=== PATIENT | female | born 1985 | race Caucasian/White ===

== ENCOUNTER 2021-10-02 16:49 | Emergency (ER) | payer MEDICAID, SELFPAY ==
[2021-10-02 16:50] VITALS: BP 129/88; PULSE 81; RESP 18; TEMP 36.1; O2SAT 99; BMI 40.2
--- NOTE | 2021-10-02 17:15 | RAD_ITS ---
STUDY: X-RAY - RIGHT KNEE REASON FOR EXAM: Female, 36 years old. Pain and stiffness TECHNIQUE: 2 view(s) of the knee. COMPARISON: None. FINDINGS: Normal visualized distal femur. Normal visualized proximal tibia and fibula. Normal proximal tibiofibular articulation. There is mild degenerative arthrosis of the medial femorotibial compartment. Normal lateral femorotibial compartment. There is mild degenerative arthrosis of the patellofemoral articulation. The soft tissue structures are unremarkable. RAD/Knee 1 or 2 Views IMPRESSION: Mild arthrosis Electronically Signed: Kurt Alcala MD at 17:34 EST , Service support ,
--- NOTE | 2021-10-02 17:55 | ED.VIS.LOWEX ---
HPI History of Present Illness HPI Narrative: Patient presents with right knee injury that occurred today. Patient states she fell down some of her basement steps. Patient states she was walking down the steps when her sock got caught on a nail and caused him to trip and fall. Patient denies any head injury or loss of consciousness. Patient states the pain is over the right knee. Patient describes it as sharp. Patient admits to some tingling down her right leg. Patient states her pain is worse with weightbearing and is better with rest. Patient denies any other injuries. Chief Complaint: Lower Extremity Injury Informant: patient Occured/Mechanism Mechanism/Context: Yes fall Onset/Context/Timing Onset: Today Context: Sudden Onset Timing: Continuous Quality of Pain: Sharp Location: Right knee Worsened by: Weightbearing Relieved by: Rest Associated Symptoms Associated Symptoms: Positive for Parasthesia; Negative for Weakness and Loss of Funtion PFSH PFSH Medical History no medical history no medical history Home Medications naproxen 500 mg PO BID PRN #20 tab 02/04/17 [Rx Last Taken Unknown] Allergy/AdvReac Type Severity Reaction Status Date / Time honey AdvReac Hives Verified 10/02/21 16:51 polymyxin B sulfate AdvReac Other Verified 10/02/21 16:51 [From Polytrim] trimethoprim [From Polytrim] AdvReac Other Verified 10/02/21 16:51 Family History no significant family his Surgical History (Updated 10/02/21 @ 18:[address] Alonso Peter DO) History of hysterectomy Surgical History no surgical history Social History Smoking Status: Never smoker ROS ROS ED Constitutional Constitutional ED: Denies chills or fever(s) Eyes Eyes: Denies blurry vision or change in vision ENT ENT ED: Denies rhinorrhea or sore throat Cardiovascular Cardiovascular: Denies chest pain or palpitations Respiratory/Chest Respiratory/Chest: Denies cough or dyspnea Gastrointestinal Gastrointestinal: Denies nausea or vomiting Genitourinary Genitourinary ED: Denies dysuria or hematuria Musculoskeletal Musculoskeletal: Denies back pain or neck pain Integumentary Denies abscess or rash Neurologic Neurologic: Denies headache(s) or weakness Allergic/Immunologic Allergic/Immunologic ED: Denies mouth swelling or urticaria EXAM Physical Exam Const Vital Signs: 10/02/21 16:50 Temperature 96.9 F L Temperature Source Temporal Pulse Rate 81 Respiratory Rate 18 Blood Pressure 129/88 H Blood Pressure Mean 101 Pulse Ox 99 Oxygen Delivery Method Room Air Positive well nourished, well developed and obese General Appearance ED: well developed Nutritional Appearance: obese HEENT Reports moist mucous membranes normocephalic and atraumatic Neck full ROM Extremity Extremity Narrative: There is tenderness over the anterior medial aspect of the right knee. There is no joint effusion. Range of motion was limited in all motions of the right knee secondary to pain. Strength is 5/5 bilaterally in the lower extremities. Extensor mechanism is intact. Pedal pulses are equal bilateral. Sensation was intact to light touch bilaterally in the lower extremities. Neuro oriented x3, CN's II-XII intact bilaterally, moves all extremities and no sensory deficits noted Sensorium / Orientation: alert Motor Exam: strength 5/5 throughout Psych mental status grossly normal MDM MDM MDM Narrative Medical decision making narrative: X-rays of the right knee were obtained. There are 2 views. On my interpretation, there is no acute fracture or dislocation. There are some mild degenerative changes. There is no joint effusion. There is no soft tissue swelling. Radiologist also interpreted the x-ray and agrees. Patient was advised of her findings. Patient was given crutches. Patient was instructed to ice and elevate the right knee. Patient was instructed take Tylenol or ibuprofen as needed for pain. Patient states she has an appoint with her orthopedic surgeon next week. Patient was instructed to keep this appointment. Patient understood and was agreeable with the plan. All questions were answered. Radiography Diagnostic Testing: Clinical Impression(s) from Imaging Studies Knee X-Ray 10/02/21 17:15 IMPRESSION: Mild arthrosis Electronically Signed: Kurt Alcala MD at 17:34 EST , Service support , Discharge Plan Triage Chief Complaint: Lower Extremity Injury ED Provider: Alonso Peter Dx/Rx/DC Orders Clinical Impression: Right knee sprain Instructions: ED Knee Sprain Prescriptions: No Action naproxen 500 MG tablet 500 mg PO BID PRN Qty: 20 RF: 0 Primary Care Provider: Care Physician,No Primary Referrals: Care Physician,No Primary [Primary Care Provider] - Keep Adam appointment Disposition Disposition: Home, Self Care
== END 2021-10-02 18:36 | disposition home or self-care (01) ==
PROVIDERS: Emergency Provider Emergency Medicine
DX: S83.91XA Sprain of unspecified site of right knee, initial encounter (principal); E66.9 Obesity, unspecified; W10.9XXA Fall (on) (from) unspecified stairs and steps, initial encounter; Y93.01 Activity, walking, marching and hiking
CPT/HCPCS: 73560; 99283

== ENCOUNTER 2022-01-11 15:21 | Outpatient (CLI) | payer MEDICAID, SELFPAY ==
--- NOTE | 2022-01-11 15:31 | MRI_ITS ---
STUDY: MR Knee W/O Contrast RIGHT 01/11/2022 5:04 PM REASON FOR EXAM: Female, 36 years old. bilateral knee pain TECHNIQUE: Standardized fat and water weighted pulse sequences were obtained in all 3 orthogonal planes. RIGHT COMPARISON: xr 12.3.21. FINDINGS: Normal medial meniscus. Normal hyaline cartilage of the medial femorotibial compartment. There is reactive marrow edema of the posterior medial aspect of the medial tibial plateau. Normal medial collateral ligamentous complex (MCL). Normal distal semimembranosus, gracilis and semitendinosus tendons. Normal lateral meniscus. Normal hyaline cartilage of the lateral femorotibial compartment. There is mild osteoarthritic spur formation of the lateral knee compartment. Normal proximal tibiofibular articulation. Normal lateral collateral (fibular) ligament. Normal popliteus tendon. Normal biceps femoris tendon. Normal anterior cruciate ligament (ACL). Normal posterior cruciate ligament (PCL). Normal congruent patellofemoral articulation. Normal hyaline cartilage of the patellofemoral compartment. Normal medial and lateral patellar retinaculum. Normal quadriceps tendon. Normal patellar tendon. Normal Hoffa''s fat pad. There is a possible ganglion along the posterior knee on the medial aspect. Small joint effusion laterally containing a loose body. The soft tissues are unremarkable. The otherwise visualized osseous structures are unremarkable. MRI/Lower Ext Joint Only (Routine) IMPRESSION: There is mild osteoarthritic spur formation of the lateral knee compartment. Small joint effusion laterally containing a loose body. There is a possible ganglion along the posterior knee on the medial aspect. There is reactive marrow edema of the posterior medial aspect of the medial tibial plateau. Electronically Signed: Oleg Hay MD at 17:08 EST Reading Location ID and State: [facility] / [place] , Service support ,
--- NOTE | 2022-01-11 16:07 | MRI_ITS ---
STUDY: MR Knee W/O Contrast 01/11/2022 5:01 PM REASON FOR EXAM: Female, 36 years old. LEFT knee pain SHARP PAIN ALONG LATERAL SIDE OF PATELLA AND PAIN OVER ANTERIOR PATELLA . ALSO NOTICES GRINDING IN HER KNEE. TECHNIQUE: Standardized fat and water weighted pulse sequences were obtained in all 3 orthogonal planes. LEFT COMPARISON: xr 12.3.21. FINDINGS: Normal medial meniscus. Normal hyaline cartilage of the medial femorotibial compartment. There is reactive marrow edema of the medial femoral condyle. Normal medial collateral ligamentous complex (MCL). Normal distal semimembranosus, gracilis and semitendinosus tendons. Normal lateral meniscus. Normal hyaline cartilage of the lateral femorotibial compartment. Normal lateral femoral condyle and tibial plateau. Normal proximal tibiofibular articulation. Normal lateral collateral (fibular) ligament. Normal popliteus tendon. Normal biceps femoris tendon. Normal anterior cruciate ligament (ACL). Normal posterior cruciate ligament (PCL). There is reactive marrow edema of the patella. Normal hyaline cartilage of the patellofemoral compartment. Normal medial and lateral patellar retinaculum. Normal quadriceps tendon. Normal patellar tendon. Normal Hoffa''s fat pad. There is a right popliteal cyst. There is a possible ganglion along the posterior knee bilaterally. Small joint effusion. The soft tissues are unremarkable. The otherwise visualized osseous structures are unremarkable. MRI/Lower Ext Joint Only (Routine) IMPRESSION: There is reactive marrow edema of the right side of the patella. There is reactive marrow edema of the medial femoral condyle. This can represent a bone bruise of the medial aspect of the patellofemoral compartment. There is a right popliteal cyst. There is a possible ganglion along the posterior knee bilaterally. Small joint effusion. Electronically Signed: Oleg Hay MD at 17:05 EST ,
== END 2022-01-11 23:59 | disposition home or self-care (01) ==
LOC: MRI 15:22
PROVIDERS: Visit Provider Physician Assistant
DX: M22.41 Chondromalacia patellae, right knee (principal); M22.42 Chondromalacia patellae, left knee; M25.561 Pain in right knee; M25.562 Pain in left knee
CPT/HCPCS: 73721

== ENCOUNTER → 2025-09-22 | Outpatient (CLI) | payer OTHER, SELFPAY | END | disposition home or self-care (01) | LOC: LABSPEC 12:13 | PROVIDERS: PCP Psychiatry & Neurology Neurology; Visit Provider Nurse Practitioner Family | DX: N89.8 Other specified noninflammatory disorders of vagina (principal) | CPT/HCPCS: 87070; 87077; 87186; 87205 ==